=== PATIENT | female | born 1990 | race Caucasian/White ===

== ENCOUNTER 2019-09-14 17:09 | Emergency (ER) | payer MEDICAID, SELFPAY ==
[2019-09-14 17:11] VITALS: BP 145/82; PULSE 97; RESP 18; TEMP 36.6; O2SAT 98; BMI 33.0
--- NOTE | 2019-09-14 17:33 | CT_ITS ---
STUDY: CT ABDOMEN AND PELVIS WITH CONTRAST REASON FOR EXAM: Female, 28 years old. Left-sided pain. Trauma. RADIATION DOSAGE (If Supplied By Facility): CTDIvol = ( 20.38 ) mGy, DLP = ( 1614.75 ) mGycm TECHNIQUE: Transaxial images were obtained from the dome of the diaphragm to the symphysis pubis without oral contrast. ml of 100mL Isovue-300 contrast was administered. Sagittal and coronal images were reconstructed. Individualized dose optimization techniques were used for this CT. COMPARISON: None. FINDINGS: The visualized lung bases are clear. The visualized portions of the heart and pericardium are within normal limits. There are no calcified gallstones present. The liver is within normal limits. There are no suspicious hepatic lesions. The spleen is normal in size. The pancreas is within normal limits. The adrenal glands are within normal limits. There are no renal or ureteral stones. There is no hydronephrosis. There are no focal renal lesions. Normal visualized stomach. There is no bowel obstruction or inflammation. The appendix is visualized and appears normal. The aorta is normal in caliber. There is no abdominal or pelvic free air, free fluid, fluid collection or lymphadenopathy. The visualized abdominal and pelvic osseous structures are intact. There is subcutaneous stranding noted in the left lower quadrant anterolateral abdominal wall. There is fluid tracking along the left gluteal muscles to the left hip. CT/Abdomen/Pelvis W IV Cont ONLY IMPRESSION: Subjacent stranding in the left lower quadrant anterolateral abdominal wall. Fluid tracking along the left gluteal muscles to the left hip. These findings are likely posttraumatic in origin. No acute fracture or dislocation. No intra-abdominal pathology. Electronically Signed: Wm Maloney, at 19:40 EDT Tel , Service support ,
--- NOTE | 2019-09-14 17:35 | ED.DCSUM_ITS ---
History of Present Illness Chief Complaint: Laceration Informant: Patient Narrative: Patient presents for evaluation of left-sided abdominal pain and laceration to the right knee. She had a laceration to the right knee 1.5 weeks ago and her stitches have dehisced today. The reason this occurred is because she was seeing and she slipped and fell off the horse. She did not hit her head or lose consciousness. The horse did apparently step on part of her left flank. She states that other than pain in that localized area she feels okay. Her tetanus immunization is up-to-date. Past Medical History - Allergies and Home Meds Allergies/Adverse Reactions: Allergies No Known Allergies Allergy (Verified 09/14/19 17:12) Primary Care Physician: NOT,DEFINED [NON-STAFF] - Prior records reviewed: Yes Lives: Alone Smoking Status: Current every day smoker Alcohol: None Drugs: None Review of Systems General: Denies: Chills, Fever, Sweats Eyes: Denies: Visual changes - bilaterally, Diplopia ENT: Denies: Rhinorrhea, Sore throat Cardiovascular: Denies: Chest pain, Palpitations Respiratory: Reports: Paroxysmal nocturnal dyspnea. Denies: Dyspnea, Cough, Dyspnea on exertion Gastrointestinal: Reports: Abdominal pain. Denies: Nausea, Vomiting, Diarrhea, Melena, Hematochezia Skin: Reports: - - Wound dehiscence of laceration right knee Neurological: Denies: Headache Physical Exam Vital Signs/Narrative: Vital Signs Temp Pulse Resp BP Pulse Ox 09/14/19 17:11 97.8 F 97 18 145/82 H 98 Inital Vital Signs reviewed: Yes General: Obese, No Acute Distress Head: Normocephalic, Atraumatic Eyes: Perrl ENT: Moist mucous membranes Cardiovascular: Regular rate, Regular rhythm Respiratory: No distress Abdomen: Soft, - - There is bruising and abrasion over the left side of the abdomen. Abdomen is non-peritoneal. There is no laceration. Back: Nontender Extremities: - - No tenderness to palpation over the right knee. She has full range of motion. There is no ligament laxity. She is ambulatory. Skin: - - 3 cm laceration with partial dehiscence at the lateral aspect of the knee. There is no active bleeding. Neurological: Alert, Oriented x3 Psychological: Normal affect Diagnostic/Tx/Re-eval Clinical Impression(s) from Imaging Studies Abdomen/Pelvis CT 09/14/19 17:33 IMPRESSION: Subjacent stranding in the left lower quadrant anterolateral abdominal wall. Fluid tracking along the left gluteal muscles to the left hip. These findings are likely posttraumatic in origin. No acute fracture or dislocation. No intra-abdominal pathology. Electronically Signed: Wm Maloney, at 19:40 EDT Tel , Service support , Laboratory Data 09/14/19 09/14/19 09/14/19 17:43 17:43 18:41 WBC 7.4 RBC 4.17 L Hgb 12.5 Hct 37.6 MCV 90.2 MCH 30.0 MCHC 33.2 RDW Std Deviation 41.3 RDW Coeff of Jam 12.7 Plt Count 230 MPV 10.7 Immature Gran % (Auto) 0.300 Neut % (Auto) 69.1 Lymph % (Auto) 23.9 [place] % (Auto) 6.6 Eos % (Auto) 0.0 Baso % (Auto) 0.1 Absolute Neuts (auto) 5.1 Absolute Lymphs (auto) 1.77 Nucleated RBC % 0 Sodium 142 Potassium 3.7 Chloride 109 H Carbon Dioxide 27.0 Anion Gap 6 BUN 15 Creatinine 1.07 H Estim Creat Clear Calc 84.65 Est GFR (MDRD) Af Amer 78 Est GFR (MDRD) Non-Af 65 BUN/Creatinine Ratio 14.0 Glucose 94 Calcium 8.7 Total Bilirubin 0.40 AST 25 ALT 30 Alkaline Phosphatase 81 Total Protein 6.7 Albumin 3.6 Globulin 3.1 Albumin/Globulin Ratio 1.2 Serum , Qual NEGATIVE Urine Color Urine Clarity Urine pH Ur Specific [place] Urine Protein Urine Glucose (UA) Urine Ketones Urine Occult Blood Urine Nitrite Urine Bilirubin Urine Urobilinogen Ur Leukocyte Esterase Urine RBC Urine WBC Ur Squamous Epith Cells Urine Bacteria Urine Mucus 09/14/19 19:40 WBC RBC Hgb Hct MCV MCH MCHC RDW Std Deviation RDW Coeff of Jam Plt Count MPV Immature Gran % (Auto) Neut % (Auto) Lymph % (Auto) [place] % (Auto) Eos % (Auto) Baso % (Auto) Absolute Neuts (auto) Absolute Lymphs (auto) Nucleated RBC % Sodium Potassium Chloride Carbon Dioxide Anion Gap BUN Creatinine Estim Creat Clear Calc Est GFR (MDRD) Af Amer Est GFR (MDRD) Non-Af BUN/Creatinine Ratio Glucose Calcium Total Bilirubin AST ALT Alkaline Phosphatase Total Protein Albumin Globulin Albumin/Globulin Ratio Serum , Qual Urine Color Yellow Urine Clarity Sl. Cloudy Urine pH 5.0 Ur Specific [place] 1.020 Urine Protein 15 H Urine Glucose (UA) Normal Urine Ketones 5 H Urine Occult Blood Negative Urine Nitrite Negative Urine Bilirubin Negative Urine Urobilinogen 4 H Ur Leukocyte Esterase 100 H Urine RBC 0-5 SEEN Urine WBC 0-5 SEEN Ur Squamous Epith Cells 0-5 SEEN Urine Bacteria RARE Urine Mucus 1+ - Medical Decision Making Presented initially for laceration dehiscence. The sutures have been in place for 1.5 weeks. We did discuss cleaning this and covering it versus reclosing it and she was amenable to just keeping it covered and clean with a dressing. Dry evaluated her knee I did ask her if she heard a thing else and she showed me her left flank which had bruising from being partially stepped on by a horse. She states she has some pain in that local area but has no other symptoms. This reason I did check lab work and imaging. Her blood work is all normal. Her CT does show some intra-inflammatory changes in the area but nothing acutely intra- abdominal. I did give her Percocet for home. She states she will follow-up with her PCP. Impression: 1. Right knee laceration with dehiscence 2. Abdominal trauma ED Disposition - Plan for ED Patient: Disposition: Home or Assisted Living Instructions: ED Abd Injury Blunt Benign, ED Laceration Small or Superficial Not Stitched Prescriptions: Oxycodone HCl/Acetaminophen [Percocet 5/325] 1 tab PO Q6H PRN PRN 3 Days #12 tab PRN Reason: Pain Prescription Printed Referrals: NOT,DEFINED [NON-STAFF] -
[2019-09-14 17:50] LABS: Absolute Lymphocyte Count 1.77 X10^3/uL (0.83-4.51); Absolute Neutrophil Count 5.1 X10^3/uL (2.0-7.7); Basophil# 0.01 X10^3/uL; Basophil% 0.1 % (0-1); Hematocrit 37.6 % (37-47); Hemoglobin 12.5 g/dL (12.0-15.0); Lymphocyte # 1.77 X10^3/ul (4.0); Lymphocyte % 23.9 % (19-41); Mean Corp Hgb Conc 33.2 g/dL (32-36); Mean Corpuscular Volume 90.2 fL (81-99); Mean Platelet Vol. 10.7 fl (6.2-12.0); Monocyte# 0.49 X10^3/uL; Monocyte% 6.6 % (0-10); NRBC Flagged by Analyzer 0 % (0-5); Neutrophil # 5.12 X10^3/uL (2.7-7.7); Neutrophil % 69.1 % (47-70); Platelet Count 230 K/mm3 (150-450); RBC Distribution Width CV 12.7 % (11.6-14.6); RBC Distribution Width SD 41.3 fl (35.1-43.9); Red Blood Count 4.17 M/mm3 (4.2-5.4); White Blood Count 7.4 K/mm3 (4.4-11.0)
[2019-09-14] MEDS: Morphine 4 MG/ML Syringe IV ×2 (18:04→20:04)
[2019-09-14] MEDS: Ondansetron 4 MG/2 ML Vial IV (18:04)
[2019-09-14 18:10] LABS: ALB/GLOB Ratio 1.2 RATIO (0.9-2.4); AST(SGOT) 25 U/L (15-37); Alanine Aminotransfer ALT/SGPT 30 U/L (13-56); Albumin, Serum 3.6 g/dL (3.2-5.0); Alkaline Phosphatase 81 U/L (45-117); Anion Gap 6 (5-15); BUN 15 mg/dL (7-18); Calcium,Total 8.7 mg/dL (8.5-10.1); Chloride 109 mmol/L (98-107); Creatinine, Serum 1.07 mg/dL (0.55-1.02); EST Glomerular Filtration Rate 65 mL/min (>60); Est Glom Filt Rate - Afr Amer 78 mL/min (>60); Estimated Creatinine Clearance 84.65 ml/min; Globulin 3.1 g/dL (2.2-4.2); Glucose 94 mg/dL (74-106); Potassium 3.7 mmol/L (3.5-5.1); Protein, Total 6.7 g/dL (6.4-8.2); Sodium Level 142 mmol/L (136-145)
[2019-09-14 18:52] VITALS: BP 138/78; PULSE 82; RESP 14; O2SAT 98
[2019-09-14 19:06] LABS: Internal QC Validated? YES +Cl - CLEAR BKGD
[2019-09-14 19:11] LABS: Pregnancy, Serum, hCG Quali. NEGATIVE Negative
[2019-09-14 19:58] LABS: Color, Urine Yellow (Yellow); Glucose, Dipstick Normal (Normal); Ketone-Dipstick 5 mg/dl (Negative); Leukocyte Esterase-Dipstick 100 /ul (Negative); Nitrite-Dipstick Negative (Negative); Occult Blood-Urine Negative /ul (Negative); Protein-Dipstick 15 mg/dl (Negative); Urine Bilirubin Dipstick Negative (Negative); Urine Clarity Sl. Cloudy (Clear); Urine Urobilinogen 4 mg/dl (Normal)
[2019-09-14 20:08] VITALS: BP 119/70; PULSE 78; RESP 16; O2SAT 100
[2019-09-14 20:10] LABS: Bacteria RARE /hpf (None Seen); Mucous, Urine 1+ /hpf (<or=2+); Red Blood Cells-Urine 0-5 SEEN /hpf (0-5); Squamous Epithelial Cells - UA 0-5 SEEN /hpf (5-10); White Blood Cells 0-5 SEEN /hpf (0-5)
[2019-09-14 21:12] VITALS: BP 115/78; PULSE 75; RESP 16; O2SAT 98
== END 2019-09-14 21:14 | disposition home or self-care (01) ==
PROVIDERS: Emergency Provider Student in an Organized Health Care Education/Training Program
DX: T81.33XA Disruption of traumatic injury wound repair, initial encounter (principal); S30.1XXA Contusion of abdominal wall, initial encounter; S30.811A Abrasion of abdominal wall, initial encounter; V80.919A Animal-rider injured in unspecified transport accident, initial encounter; Y93.52 Activity, horseback riding; Y92.9 Unspecified place or not applicable; F17.200 Nicotine dependence, unspecified, uncomplicated
CPT/HCPCS: 74177; 80053; 81001; 84703; 85025; 96374; 96375; 96376; 99283; Q9967; A4216; J2405